=== PATIENT | female | born 2005 | race Hispanic/Latino ===

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

== ENCOUNTER 2023-02-13 06:14 | Observation (INO) | payer MEDICAID ==
[~2023-02-13] VITALS: Ht 162.6 cm; Wt 84.4 kg
[~2023-02-13 06:14] MED LIST: CEPH500B PO
[2023-02-13 06:19] VITALS: PULSE 85; RESP 18; O2SAT 98
[2023-02-13 06:55] LABS: APPEARANCE,URINE CLEAR (CLEAR); BILIRUBIN,URINE NEGATIVE (NEGATIVE); COLOR,URINE YELLOW (YELLOW); GLUCOSE, URINE (UA) NEGATIVE (NEGATIVE); KETONES,URINE NEGATIVE (NEGATIVE); LEUKOCYTE ESTERASE ,URINE 250 Leu/uL (NEGATIVE); NITRATE,URINE NEGATIVE (NEGATIVE); OCCULT BLOOD,URINE NEGATIVE (NEGATIVE); PROTEIN,URINE 30 mg/dL (NEGATIVE)
[2023-02-13 06:59] LABS: ADD UA MICROSCOPIC YES
[2023-02-13 07:00] VITALS: BP 118/68
[2023-02-13 07:02] LABS: AMPHET/METH SCREEN,URINE NEGATIVE (NEGATIVE); BARBITURATE SCREEN, URINE NEGATIVE (NEGATIVE); BENZODIAZEPINES SCREEN,URINE NEGATIVE (NEGATIVE); CANNABINOID SCREEN,URINE NEGATIVE (NEGATIVE); COCAINE SCREEN,URINE NEGATIVE (NEGATIVE); OPIATE SCREEN,URINE NEGATIVE (NEGATIVE); PHENCYCLIDINE SCREEN,URINE NEGATIVE (NEGATIVE)
[2023-02-13 07:03] LABS: BACTERIA,URINE RARE /HPF (None Seen); MUCUS,URINE RARE LPF (None Seen); SQUAMOUS EPITHELIAL CELL,UR MOD /HPF (0-2)
[2023-02-13 07:08] LABS: RBC,URINE 0-1 /HPF (0-1)
[2023-02-13] MEDS: LACTATED RINGERS 1000ML 1,000 ML IV PRN ×2 (07:27→08:39)
[2023-02-13] MEDS ORDERED: MEPERIDINE-PF 25 MG/ML SYG IVP ONE (08:00)
[2023-02-13] MEDS ORDERED: TERBUTALINE SULFATE VIAL 1MG/ML SQ SCH (08:00)
[2023-02-13] MEDS ORDERED: LACTATED RINGERS 1000ML 1,000 ML IV SCH (08:00)
[2023-02-13] MEDS ORDERED: PROMETHAZINE HCL 25 MG/ML 1ML AMPULE IM ONE (08:00)
[2023-02-13] MEDS ORDERED: METRONIDAZOLE 500 MG TABLET PO SCH (10:00)
== END 2023-02-13 10:05 | disposition home or self-care (01) ==
LOC: EDH 06:14 → LDH 06:15
PROVIDERS: ADMIT Obstetrics & Gynecology; ATTEND Obstetrics & Gynecology
DX: O99.891 Other specified diseases and conditions complicating pregnancy (principal); M54.9 Dorsalgia, unspecified; Z3A.33 33 weeks gestation of pregnancy; Z79.899 Other long term (current) drug therapy
CPT/HCPCS: 96374; 96361 ×2; 59025; 96372; 80305; 87210; 87088; 81001; G0378 ×3; G0379; J7120 ×2; J3105; J2550; J2175; 96360

== ENCOUNTER 2023-03-16 16:07 | Observation (INO) | payer MEDICAID ==
[~2023-03-16] VITALS: Ht 162.6 cm; Wt 87.5 kg
[2023-03-16] MEDS ORDERED: LACTATED RINGERS 1000ML 1,000 ML IV PRN (16:30)
[2023-03-16 17:27] VITALS: BP 118/66
== END 2023-03-16 17:50 | disposition home or self-care (01) ==
LOC: LDH 16:07 → UNDOADMOB 16:07
PROVIDERS: ADMIT Obstetrics & Gynecology; ATTEND Obstetrics & Gynecology
DX: O36.8130 Decreased fetal movements, third trimester, not applicable or unspecified (principal); Z3A.38 38 weeks gestation of pregnancy
CPT/HCPCS: 59025; 76819; G0378; G0379

== ENCOUNTER 2024-04-29 23:22 | Emergency (ER) | payer SELFPAY ==
[~2024-04-29] VITALS: Ht 160 cm; Wt 73.9 kg
[2024-04-29 23:23] VITALS: BP 116/73; PULSE 80; RESP 16; TEMP 98
--- NOTE | 2024-04-29 23:25 | NUR ---
[facility] PROVIDED COVID, FLU AND STREP SWABS COLLECTED AND SENT
[2024-04-30 00:02] LABS: APPEARANCE,URINE CLEAR (CLEAR); BILIRUBIN,URINE NEGATIVE (NEGATIVE); COLOR,URINE LIGHT-YELLOW (YELLOW); GLUCOSE, URINE (UA) NEGATIVE (NEGATIVE); KETONES,URINE NEGATIVE (NEGATIVE); LEUKOCYTE ESTERASE ,URINE NEGATIVE Leu/uL (NEGATIVE); NITRATE,URINE NEGATIVE (NEGATIVE); OCCULT BLOOD,URINE NEGATIVE (NEGATIVE); PH,URINE 7.5 (5.0-8.0); PROTEIN,URINE NEGATIVE (NEGATIVE); UROBILINOGEN,URINE 0.2 mg/dL (0.2-1.0)
[2024-04-30 00:03] LABS: SARS-CoV-2, RNA, NAAT NEGATIVE SARS CoV-2 (NEGATIVE)
[2024-04-30 00:09] LABS: ADD UA MICROSCOPIC NO; HCG,QUALITATIVE URINE NEGATIVE (NEGATIVE)
[2024-04-30 00:16] LABS: RAPID GROUP A STREP negative (NEGATIVE)
[2024-04-30 00:17] LABS: INFLUENZA TYPE A Negative For Type A (NEGATIVE); INFLUENZA TYPE B Negative For Type B (NEGATIVE)
--- NOTE | 2024-04-30 00:56 | HMCIMG ---
CT ABDOMEN/PELVIS W/O CONTRAST HISTORY: Abdominal pain COMPARISON: None TECHNIQUE: Multiple sequential axial images of the abdomen and pelvis were obtained from the dome of the diaphragm through symphysis pubis. Patient was not given contrast through intravenous route. Oral contrast was not given. FINDINGS: No pleural effusion is seen bilaterally. There is no evidence of parenchymal disease or pulmonary nodule of the visualized lower lungs. Degenerative changes of the thoracolumbar spine are present. The heart is not enlarged. Liver measures 17 cm. Gastric distention is seen. The liver, spleen, adrenal glands and pancreas are unremarkable. There is no evidence of hydronephrosis bilaterally. No evidence of renal stone is seen. Fecal material is seen in the colon. There are normal size retroperitoneal and mesenteric lymph nodes. No ascites is seen. No definite CT evidence of acute appendicitis is seen. Pelvic sidewalls are symmetric bilaterally. Bladder is poorly distended. IMPRESSION: 1. If there is clinical suspicion for pyelonephritis or cystitis, urinalysis correlation may be helpful. No ascites is seen. CT was performed with one or more following dose reduction techniques: automated exposure control, adjustment of the mA and kv according to patient's size, or use of a iterative reconstruction technique.
[2024-04-30] MEDS: 0.9%NACL 1000ML 1,000 ML IV ONE (01:00)
[2024-04-30 01:35] LABS: BASOPHILS # (AUTO) 0.02 K/uL (0.00-0.20); BASOPHILS % (AUTO) 0.1 % (0.0-5.0); EOSINOPHILS % (AUTO) 0.7 % (0.0-8.0); HEMATOCRIT 43.2 % (36-48); IMMATURE GRANULOCYTE ABSOLUTE 0.06 K/uL (0-1); LYMPHOCYTES # (AUTO) 1.7 K/uL (1.0-4.8); LYMPHOCYTES % (AUTO) 11.9 % (21.0-51.0); MEAN CORPUSCULAR HEMOGLOBIN 24.5 pg (27.0-33.0); MEAN CORPUSCULAR HGB CONC 31.5 g/dL (32.0-36.0); MEAN CORPUSCULAR VOLUME 77.8 fL (80-100); MONOCYTES # (AUTO) 0.7 K/uL (0.1-1.0); NEUTROPHILS # (AUTO) 11.3 K/uL (1.8-7.7); NEUTROPHILS % (AUTO) 81.9 % (40.0-77.0); PLATELET COUNT (AUTO) 300 K/uL (130-400); RED BLOOD CELL COUNT(AUTO) 5.55 MIL/uL (4.00-5.50); RED CELL DISTRIBUTION WIDTH 14.6 % (11.0-15.5); WHITE BLOOD COUNT (AUTO) 13.8 K/uL (4.8-10.8)
[2024-04-30 01:37] LABS: CREATININE 0.7 mg/dL (0.5-1.0); POTASSIUM 3.6 mmol/L (3.5-5.1)
--- NOTE | 2024-04-30 02:23 | ERN ---
General Chief Complaint: Flu Symptoms Stated Complaint: BACK PAIN, HEADACHE, VOMITING Time Seen by MD: 23:26 Time Seen by Midlevel: 23:26 Source: patient History of Present Illness Initial Comments Patient is a 18-year-old female with the past medical history of chronic back pain presents to the emergency department with multiple complaints. She states she has been having watery eyes along with sneezing, runny nose, and generalized headache for the last couple of days. She was seen at [facility] earlier today and was diagnosed with influenza. Additionally, what concerns her more as her pain in her lower back and lower abdomen. That pain is rated 7/10. She does report having 12/vomiting but specifically denies any fevers or diarrhea. Denies hematuria or dysuria. She does report having a history of previous back injuries along with bulging discs and reports chronic back pain. Allergies: Coded Allergies: No Known Drug Allergies (Unverified Allergy, Unknown, 07/31/22) Past Medical History Past Medical History: No Pertinent History Past Surgical History: None Social History Social History: Negative, Lives with family Female( History) History: Not Applicable LMP: Mar 30, 2024 : 1 Para: 0 Aborts: 0 ROS Dictation CONSTITUTIONAL: No chills, no fever, no weakness, no diaphoresis, no malaise. HEAD/FACE: No signs of trauma. EENT: No eye pain, no blurred vision, no tearing, no double vision, no ear pain, no ear discharge, no nose pain, no nasal congestion, no throat pain, no throat swelling, no mouth pain. RESPIRATORY: No cough, no orthopnea, no SOB, no stridor, no wheezing. CARDIOVASCULAR: No chest pain, no edema, no palpitations, no syncope. GASTROINTESTINAL/ABDOMINAL: No abdominal pain, no constipation, no diarrhea, no nausea, no vomiting. GENITOURINARY: No abnormal discharge, no dysuria, no frequent urination, no hematuria. No complaints of pain in the genitals. MUSCULOSKELETAL: No back pain, no gout, no joint pain, no joint swelling, no muscle pain, no muscle stiffness, no neck pain. INTEGUMENTARY: No change in color, no change in hair/nails, no dryness, no le eduard, no lumps, no rash. NEUROLOGICAL/PSYCH: No anxiety, not depressed, no emotional problem, no headache, no numbness, no pre-existing deficit, no history of seizures, no tremors, no weakness. HEMATOLOGIC/LYMPHATIC: Not anemic, no history of blood clots, no apparent bleeding, no bruising, glands not swollen. All Systems Negative, Except as Noted. Physical Exam Physical Exam Dictation VITAL SIGNS: Reviewed. GENERAL APPEARANCE: Alert, oriented x3, no acute distress HEAD AND FACE: Non-traumatic. EYES: PERRL, pink conjunctivas, eyelid no trauma, anterior chamber clear. EARS: Pinnas intact and no signs of trauma or erythema. Ear canals clear and no discharge. TMs no erythema. NOSE: No discharge, no bleeding. OROPHARYNX: Mouth normal, teeth no caries, tongue pink. Pharynx clear, no erythema. Tonsils no exudates, no abscesses noted. Mucous membrane moist. NECK: Supple, non-tender, no thyromegaly, no masses, no JVD, no bruits. BREAST: Deferred. CHEST: No tenderness, no crepitus, no paradoxical movement, no retractions. LUNGS: Clear, well-ventilated, symmetric, no rales, no wheezing, no rhonchi, no stridor, good breath sounds bilaterally. HEART: Regular rate, regular rhythm, no murmur, no gallops. VASCULAR: No peripheral edema. ABDOMEN: Soft, positive bowel sounds, nondistended, no guarding, nontender, no rebound, no masses no hepatomegaly, no splenomegaly, no Trivedi's sign, no hernias. RECTAL: Deferred. GENITAL: Deferred. NEUROLOGICAL: Normal speech, gross motor function intact, gross sensory function intact. MUSCULOSKELETAL: Neck nontender, full range of motion, back nontender, full range of motion. EXTREMITIES: Nontender, full range of motion. SKIN: Color pink, dry, no turgor, no rash, no lacerations, no abrasions, no contusions. LYMPHATICS: Deferred. Results Laboratory and Microbiology Lab and Micro Result Laboratory Tests Test 04/29/24 23:30 04/29/24 23:50 Influenza Type A Antigen Negative For Type A Influenza Type B Antigen Negative For Type B SARS-CoV-2, RNA, NAAT NEGATIVE SARS CoV-2 Group A Streptococcus Rapid negative (NEGATIVE) White Blood Count 13.8 K/uL (4.8-10.8) H Red Blood Count 5.55 MIL/uL (4.00-5.50) H Hemoglobin 13.6 g/dL (12.0-16.0) Hematocrit 43.2 % (36-48) Mean Corpuscular Volume 77.8 fL (80-100) L Mean Corpuscular Hemoglobin 24.5 pg (27.0-33.0) L Mean Corpuscular Hemoglobin Concent 31.5 g/dL (32.0-36.0) L Red Cell Distribution Width 14.6 % (11.0-15.5) Platelet Count 300 K/uL (130-400) Mean Platelet Volume 11.1 fL (7.5-10.5) H Immature Granulocyte % (Auto) 0.4 % (0-1) Neutrophils (%) (Auto) 81.9 % (40.0-77.0) H Lymphocytes (%) (Auto) 11.9 % (21.0-51.0) L Monocytes (%) (Auto) 5.0 % (3.0-13.0) Eosinophils (%) (Auto) 0.7 % (0.0-8.0) Basophils (%) (Auto) 0.1 % (0.0-5.0) Neutrophils # (Auto) 11.3 K/uL (1.8-7.7) H Lymphocytes # (Auto) 1.7 K/uL (1.0-4.8) Monocytes # (Auto) 0.7 K/uL (0.1-1.0) Eosinophils # (Auto) 0.10 K/uL (0.00-0.70) Basophils # (Auto) 0.02 K/uL (0.00-0.20) Absolute Immature Granulocyte (auto 0.06 K/uL (0-1) Nucleated Red Blood Cells 0.0 % (0.0-0.19) Urine Color LIGHT-YELLOW (YELLOW) Urine Appearance CLEAR (CLEAR) Urine pH 7.5 (5.0-8.0) Urine Specific [place] 1.019 (1.001-1.031) Urine Protein NEGATIVE mg/dL (NEGATIVE) Urine Glucose (UA) NEGATIVE mg/dL (NEGATIVE) Urine Ketones NEGATIVE mg/dL (NEGATIVE) Urine Occult Blood NEGATIVE (NEGATIVE) Urine Nitrate NEGATIVE (NEGATIVE) Urine Bilirubin NEGATIVE mg/dL (NEGATIVE) Urine Urobilinogen 0.2 mg/dL (0.2-1.0) Urine Leukocyte Esterase NEGATIVE Remy/uL Urine HCG, Qualitative NEGATIVE (NEGATIVE) Sodium Level 138 mmol/L (136-145) Potassium Level 3.6 mmol/L (3.5-5.1) Chloride Level 103 mmol/L (101-111) Carbon Dioxide Level 26 mmol/L (21-32) Blood Urea Nitrogen 6 mg/dL (7-18) L Creatinine 0.7 mg/dL (0.5-1.0) Glomerular Filtration Rate Calc 127 mL/min (>90) Random Glucose 102 mg/dL (70-105) Total Calcium 9.0 mg/dL (8.5-10.1) Labs Reviewed?: Yes MDM MDM: Differential diagnosis: Urinary tract infection, pyelonephritis, ureter stone Rationale: Tests considered and ordered secondary to shared decision making include: Previous outside records reviewed: Old ER visits. Risk of complication and/or morbidity or mortality of patient management: None Medications-Per medication reconciliation Need for hospitalization: Patient does not meet criteria for hospitalization. Need for emergency major/minor surgery: No There are no social concerns with this patient. Prescription drug management Prescriptions will include symptomatic care Patient's prior external medical records from other ER visits were reviewed by me as indicated. Prior testing and results from previous visits were reviewed. Prior tests were taken into account with medical decision making and resource utilization, independent historian/historians were used to obtain complete medical history. I independently interpreted the test that were performed, results were reviewed by me and considered findings on radiology if ordered. Medical management and examination interpretation discussions were had by me with other qualified healthcare professionals as indicated for the patient's c are. ED Course Orders Procedure Category Date Status Time Urinalysis Profile LAB 04/29/24 Complete 23:24 ,Urine Test LAB 04/29/24 Complete 23:24 Covid Rna Naat LAB 04/29/24 Complete 23:24 Influenza Type A & B, LAB 04/29/24 Complete Rapid 23:24 Rapid (Group A Strep) LAB 04/29/24 Complete 23:24 Cbc With Differential LAB 04/30/24 In Process 00:32 Basic Metabolic Panel LAB 04/30/24 Complete 00:32 Ct Abdomen/Pelvis W/O CT 04/30/24 Resulted Contrast 00:32 0.9%Nacl 1000ml (Ns PHA 11/18/24 Complete 1000ml) 01:00 Current Medications Medications (Trade) Dose Ordered Sig/Josue Route PRN Reason Start Time Stop Time Status Last Admin Dose Admin Sodium Chloride 1,000 ml @ 0 mls/hr ONCE ONCE IV 04/30/24 01:00 04/30/24 01:01 DC 04/30/24 01:00 Vital Signs Date Time Temp Pulse Resp B/P (MAP) Pulse Ox O2 Delivery O2 Flow Rate FiO2 04/29/24 23:23 98.1 80 16 116/73 99 Room Air [facility] [address] [place] [address] IMAGING REPORT Signed PATIENT: RENETTA PASTRANA MR#: [id number] : 2005 SEX: F AGE: 18 LOCATION: [facility] ORDER STATUS: REG ER REPORT#: [id number] SERVICE REASON: Suprapubic abd pain radiates to back r/o pyelonephritis ORDERING PHYSICIAN: RUSH MERCADO PROCEDURE: ABD PEL WO - CT ABDOMEN/PELVIS W/O CONTRAST CT ABDOMEN/PELVIS W/O CONTRAST HISTORY: Abdominal pain COMPARISON: None TECHNIQUE: Multiple sequential axial images of the abdomen and pelvis were obtained from the dome of the diaphragm through symphysis pubis. Patient was not given contrast through intravenous route. Oral contrast was not given. FINDINGS: No pleural effusion is seen bilaterally. There is no evidence of parenchymal disease or pulmonary nodule of the visualized lower lungs. Degenerative changes of the thoracolumbar spine are present. The heart is not enlarged. Liver measures 17 cm. Gastric distention is seen. The liver, spleen, adrenal glands and pancreas are unremarkable. There is no evidence of hydronephrosis bilaterally. No evidence of renal stone is seen. Fecal material is seen in the colon. There are normal size retroperitoneal and mesenteric lymph nodes. No ascites is seen. No definite CT evidence of acute appendicitis is seen. Pelvic sidewalls are symmetric bilaterally. Bladder is poorly distended. IMPRESSION: 1. If there is clinical suspicion for pyelonephritis or cystitis, urinalysis correlation may be helpful. No ascites is seen. CT was performed with one or more following dose reduction techniques: automated exposure control, adjustment of the mA and kv according to patient's size, or use of a iterative reconstruction technique. DICTATED BY: BUSHRA ZUNIGA MD DATE: 04/30/2451 ELECTRONICALLY SIGNED BY: BUSHRA ZUNIGA MD DATE: 04/30/2455 DX & DISP Disposition: Discharge Departure Impression: Primary Impression: Chronic back pain Condition: Stable Additional Instructions: Your blood work today stable. Your urine analysis does not show any evidence of infection. Your kidney function is normal. Your electrolytes are normal. You were CT scan of the abdomen/pelvis shows degenerative changes of your thoracolumbar spine however no acute abnormalities were noted. You will need to see a back specialist for outpatient evaluation. Giving you a referral to a local orthopedic surgeon. Follow up with her primary care doctor in 2-3 days for repeat evaluation. Return to the ER for any new or worsening symptoms Referrals: PATRICK COLE MD (PCP) Time of Disposition: 02:18 I have reviewed the case, and I agree with, Diagnosis and Plan RUSH MERCADO Apr 30, 2024 02:23
== END 2024-04-30 02:36 | disposition home or self-care (01) ==
LOC: EDH 23:22
DX: G89.29 Other chronic pain (principal); M54.9 Dorsalgia, unspecified; Z20.822 Contact with and (suspected) exposure to COVID-19
CPT/HCPCS: 99284; 87635; 80048; 85025; 87880; 87804 ×2; 81003; 81025; 36415; 74176; 96360; J7030